=== PATIENT | female | born 1980 | race African-American/Black ===

== ENCOUNTER 2018-10-05 12:19 | Emergency (ER) | payer SELFPAY ==
[2018-10-05] MEDS ORDERED: IBUPROFEN 800 MG TABLET PO ONE (13:40)
[2018-10-05] MEDS ORDERED: AMOXICILLIN TRIHYDRATE 500 MG CAPSULE PO ONE (13:40)
--- NOTE | 2018-10-05 13:46 | ER Document Report ---
ED Oral Problem - General Chief Complaint: Toothache Stated Complaint: TOOTH PAIN Time Seen by Provider: 10/05/18 13:32 Mode of Arrival: Ambulatory Information source: Patient Notes: 38-year-old female presented to ED for complaint of dental pain. She states the tooth has been chipped for several years. She states the pain improved with Motrin but she needed to come to the emergency room to get antibiotics. She states she plans to call the dentist tomorrow. Patient is alert oriented re spirations regular and unlabored speaking in full sentences walks with a even steady gait. TRAVEL OUTSIDE OF THE [place] IN LAST 30 DAYS: No - HPI Patient complains to provider of: Toothache Onset: Other - Tooth has been chipped and decayed for several years pain has been worse for the last several days. Onset: Gradual Quality of pain: Sharp, Throbbing Severity: Severe Pain Level: 5 Associated symptoms: Toothache Worsened by: Cold - Smoking drinking anything cold Relieved by: Nothing Similar symptoms previously: Yes Recently seen / treated by doctor/dentist: No - Related Data Allergies/Adverse Reactions: No Known Allergies Allergy (Unverified 10/05/18 12:22) Past Medical History - General Information source: Patient - Social History Smoking Status: Current Every Day Smoker Cigarette use (# per day): Yes - 2-3 cigarettes a day Chew tobacco use (# tins/day): No Smoking Education Provided: Yes Frequency of alcohol use: Social Drug Abuse: None Occupation: Recycling Lives with: Spouse/Significant other - Female significant other Family History: Reviewed & Not Pertinent - Past Medical History Cardiac Medical History: Reports: None Pulmonary Medical History: Reports: Hx Bronchitis Neurological Medical History: Reports: None Endocrine Medical History: Reports: None Renal/ Medical History: Reports: None Malignancy Medical History: Reports: None GI Medical History: Reports: None Musculoskeletal Medical History: Reports Hx Musculoskeletal Trauma Psychiatric Medical History: Reports: None Traumatic Medical History: Reports: Hx Fractures - Jaw fracture, left fourth toe fracture, boxer's fracture Infectious Medical History: Reports: None Past Surgical History: Reports: Other - Hemorrhoid and polyps Review of Systems - Review of Systems Constitutional: No symptoms reported EENT: Mouth pain, Dental problem Cardiovascular: No symptoms reported Respiratory: No symptoms reported Gastrointestinal: No symptoms reported Genitourinary: No symptoms reported Female Genitourinary: No symptoms reported Musculoskeletal: No symptoms reported Skin: No symptoms reported Hematologic/Lymphatic: No symptoms reported Neurological/Psychological: No symptoms reported -: Yes All other systems reviewed and negative Physical Exam - Vital signs Vitals: Temp Pulse Resp BP Pulse Ox 97.6 F 74 16 131/94 H 98 10/05/18 12:26 10/05/18 12:26 10/05/18 12:26 10/05/18 12:26 10/05/18 12:26 Interpretation: Normal - General General appearance: Appears well, Alert - HEENT Head: Normocephalic, Atraumatic Eyes: Normal Pupils: PERRL Ears: Normal External canal: Normal Tympanic membrane: Normal Sinus: Normal Nasal: Purulent discharge, Swelling Mouth/Lips: Caries Mucous membranes: Normal Teeth diagram: 1 - These are the only teeth left in her bottom jaw tooth #23 is extremely decayed with swelling around the tooth - Respiratory Respiratory status: No respiratory distress Chest status: Nontender Breath sounds: Normal Chest palpation: Normal - Cardiovascular Rhythm: Regular Heart sounds: Normal auscultation Murmur: No - Abdominal Inspection: Normal Distension: No distension Bowel sounds: Normal Tenderness: Nontender Organomegaly: No organomegaly - Back Back: Normal, Nontender - Extremities General upper extremity: Normal inspection, Nontender, Normal color, Normal ROM, Normal temperature General lower extremity: Normal inspection, Nontender, Normal color, Normal ROM, Normal temperature, Normal weight bearing. No: Marco A's sign - Neurological Neuro grossly intact: Yes Cognition: Normal Orientation: AAOx4 Karolyn Coma Scale Eye Opening: Spontaneous Karolyn Coma Scale Verbal: Oriented Karolyn Coma Scale Motor: Obeys Commands Karolyn Coma Scale Total: 15 Speech: Normal Motor strength normal: LUE, RUE, LLE, RLE Sensory: Normal - Psychological Associated symptoms: Normal affect, Normal mood - Skin Skin Temperature: Warm Skin Moisture: Dry Skin Color: Normal Course - Re-evaluation Re-evalutation: 10/05/18 13:52 Assessment consistent with dental decay and mild infection no abscesses noted patient was treated with amoxicillin as she stated Pen-Vee K does not usually help with her dental pain and infections. She was also treated with ibuprofen. She states she does not have a history of ibuprofen is just because she is in pain and in the emergency room. Patient was instructed to monitor her blood pressure and follow-up with her primary doctor for that. Patient was discharged home with prescription for amoxicillin. Presentation is most consistent with likely an infected tooth. Airway is patent. Vitals within normal limits. Patient is able swallow without any difficulty. There is no significant facial swelling. No evidence of Sj angina, apical abscess, or airway obstruction. Patient will be started on antibiotics. I've instructed to follow-up with dentistry as earliest ability for definitive management. At this time will discharge with return precautions and follow-up recommendations. Verbal discharge instructions given a the bedside and opportunity for questions given. Medication warnings reviewed. Patient is in agreement with this plan and has verbalized understanding of return precautions and the need for primary care follow-up in the next 24-72 hours. - Vital Signs Vital signs: Temp Pulse Resp BP Pulse Ox 97.6 F 74 16 131/94 H 98 10/05/18 12:26 10/05/18 12:26 10/05/18 12:26 10/05/18 12:26 10/05/18 12:26 Discharge - Discharge Clinical Impression: Pain due to dental caries Condition: Stable Disposition: HOME, SELF-CARE Additional Instructions: TOOTHACHE: Your pain is due to dental decay. The tooth must be repaired in order for you to feel better. You will, therefore, be referred to a dentist. We do not have dentists on the staff at [facility]. Severe swelling or drainage around a tooth usually means a dental abscess. This also requires evaluation and treatment by the dentist, but antibiotics may be prescribed while awaiting dental treatment. You should be rechecked immediately if you develop major swelling of the face, increasing pain, a lump in the jaw or gums, headache, difficulty swallowing, or fever. Amoxicillin Amoxicillin is a member of the penicillin family. It covers the germs lik malia to cause ear, bronchial, and urinary infections better than plain penicillin. Amoxicillin can be taken without regard to meals. Nausea after taking the medication is rare, but can occur. Diarrhea can occur, particularly in small children. Vaginal yeast infections and oral thrush in infants are also common. Contact your physician if these problems occur. Allergy to penicillins is common. If you have had an allergic reaction to any drug of the penicillin family, you should never take any other penicillin. Notify your doctor at once if you develop hives, itching, swelling, faintness, or shortness of breath. Less serious side effects can include nausea or diarrhea. Ibuprofen Ibuprofen is an excellent, safe drug for pain control. In addition, it has potent antiinflammatory effects which are beneficial, especially in the treatment of injuries, arthritis, or tendonitis. It's best to take ibuprofen with food. Persons with ulcer disease or allergy to aspirin should notify their physician of this before taking ibuprofen. Take the medication exactly as prescribed. Don't take additional doses unless instructed to do so by your doctor. If you develop wheezing, shortness of breath, hives, faintness, stomach pain, vomiting, or dark black stools, return for re-evaluation at once. Salt and soda solution 1 quart of water 1 tablespoon of salt 1 teaspoon of baking soda Mixed 3 ingredients together and boil for 1 minute Placed in a covered quart jar Use 1/2 ounce of cold solution to gargle 3 times a day FOLLOW-UP CARE: You have been referred for follow-up care to the dentists listed below. Call the dentists office for an appointment as you were instructed or within the next two days. If you experience worsening or a significant change in your symptoms, notify the physician immediately or return to the Emergency Department at any time for re-evaluation. [facility] [address] [place], [place] [facility] [address] [place] [address] Formerly [facility] [address] [facility] [address] [facility] [employer] [facility] [address] [email or web address] [address] [place] [address] Thursday- 8:00am to 5:00 pm Will see patients from other [facility]. Charges based on income and family size and accepts Medicare, Medicaid, and Insurances Will pull molars [facility] [place] [address] Hours of Operation 8:00 am - 4:30 pm weekdays The following dental offices accept Medicaid: [facility] Dr. Maravilla Dr. Long Dr. Lozada Dr. Solo Carlos Cortez [place], and [facility] Dr. Jordan ([place]) Dr. Mora ([place]) [facility] Drs. Chaudhry and Siddhartha ([place]) Dr. Sheikh ([place]) [facility] Dr. Linton ([place]) Drs. Wu and ([place]) Medicaid Care Line Prescriptions: Amoxicillin Trihydrate [Amoxil 875 mg Tablet] 1 tab PO BID #20 tablet Ibuprofen [Motrin 800 mg Tablet] 800 mg PO Q8H PRN #30 tab PRN Reason: Forms: Elevated Blood Pressure, Smoking Cessation Education
[2018-10-05 13:53] VITALS: BP 126/86
== END 2018-10-05 13:59 | disposition home or self-care (01) ==
LOC: ER 12:19
DX: K02.9 Dental caries, unspecified (principal); K08.89 Other specified disorders of teeth and supporting structures; F17.210 Nicotine dependence, cigarettes, uncomplicated; J34.89 Other specified disorders of nose and nasal sinuses
CPT/HCPCS: 99282

== ENCOUNTER 2019-12-05 13:23 | Emergency (ER) | payer SELFPAY ==
--- NOTE | 2019-12-05 14:36 | ER Document Report ---
HPI - HPI Time Seen by Provider: 12/05/19 14:33 Pain Level: 3 Notes: Patient is an otherwise healthy 39-year-old female presenting to the emergency department chief complaint of neck pain. Patient denies any injury to the area. She states that several days ago she woke up with a very stiff neck, she states the pain radiates down into her right shoulder. She reports reports the pain is worse with any movement and she does not have full range of motion. She denies any fever or other illness. Past Medical History - General Information source: Patient - Social History Smoking Status: Current Some Day Smoker Chew tobacco use (# tins/day): No Frequency of alcohol use: Occasional Drug Abuse: None Family History: Reviewed & Not Pertinent Patient has suicidal ideation: No Patient has homicidal ideation: No Pulmonary Medical History: Reports: Hx Bronchitis Renal/ Medical History: Denies: Hx Peritoneal Dialysis Musculoskeletal Medical History: Reports Hx Musculoskeletal Trauma Traumatic Medical History: Reports: Hx Fractures - Jaw fracture, left fourth toe fracture, boxer's fracture Past Surgical History: Reports: Hx Oral Surgery, Other - Hemorrhoid and polyps Vertical Provider Document - CONSTITUTIONAL Notes: PHYSICAL EXAMINATION: GENERAL: Well-appearing, well-nourished and in no acute distress. HEAD: Atraumatic, normocephalic. EYES: Pupils equal round extraocular movements intact, conjunctiva are normal. ENT: Nares patent NECK: Normal range of motion LUNGS: No respiratory distress Musculoskeletal: Slightly limited range of motion when flexing neck towards the left. No vertebral tenderness, step-off or deformity. Tenderness to palpation down into the scapular area. NEUROLOGICAL: Normal speech, normal gait. PSYCH: Normal mood, normal affect. SKIN: Warm, Dry, normal turgor, no rashes or lesions noted. - INFECTION CONTROL TRAVEL OUTSIDE OF THE [place] IN LAST 30 DAYS: No Course - Re-evaluation Re-evalutation: Exam most consistent with torticollis. Patient will be started on muscle relaxers for the next several days, work note given. ED return precautions discussed to include development of fever. Patient verbalized understanding and agreement with this plan. - Vital Signs Vital signs: Temp Pulse Resp BP Pulse Ox 97.8 F 75 20 127/81 H 100 12/05/19 13:40 12/05/19 13:40 12/05/19 13:40 12/05/19 13:40 12/05/19 13:40 Discharge - Discharge Clinical Impression: Torticollis Condition: Stable Disposition: HOME, SELF-CARE Additional Instructions: Torticollis You have torticollis, often called "wry neck." This is due to spasm of neck muscles -- locking the neck into a crooked position. Many different problems can lead to torticollis, such as a minor injury, sleeping with tension on the neck, or inflammation in the glands of the neck. Torticollis is usually treated with heat to relax the neck muscles, but the physician may recommend cold packs if a minor injury is suspected as the cause. Muscle relaxing and antiinflammatory medicine are often prescribed. You may need a neck collar to support your head. Improvement is usually rapid. Usually, the neck can be moved fully within two days, although some pain may persist for a few weeks. Call the doctor at once if you worsen, or if you develop high fever, severe headache, numbness or weakness, or other alarming symptoms. Prescriptions: Diazepam [Valium 2 mg Tablet] 2 mg PO Q6HP PRN #3 tablet PRN Reason: Cyclobenzaprine HCl [Flexeril 10 mg Tablet] 10 mg PO TIDP PRN #15 tab PRN Reason: Forms: Return to Work
[2019-12-05] MEDS ORDERED: DIAZEPAM 5 MG TABLET PO ONE (14:53)
[2019-12-05 15:18] VITALS: BP 125/80
== END 2019-12-05 15:18 | disposition home or self-care (01) ==
LOC: ER 13:23
DX: M43.6 Torticollis (principal); F17.200 Nicotine dependence, unspecified, uncomplicated
CPT/HCPCS: 99283

== ENCOUNTER 2020-10-08 15:14 | Emergency (ER) | payer SELFPAY ==
[2020-10-08 15:22] VITALS: BP 130/90
--- NOTE | 2020-10-08 17:09 | ER Document Report ---
ED Medical Screen (RME) - General Chief Complaint: Shortness Of Breath Stated Complaint: SHORT OF BREATH,COUGH TRAVEL OUTSIDE OF THE [place] IN LAST 30 DAYS: No - HPI Notes: 10/08/20 17:05 Rapid Medical Exam HPI: This is a 40yo female c/o sob, cough, and diarrhea X 2 days. no known covid contacts. SOB is worse when ambulating or laying down. Denies fever/chills or abdom pain. had covid contact through cousin in august. pt has never been tested or diagnosed w/ covid. Physical Exam: GENERAL: Well-appearing, well-nourished and in no acute distress. HEAD: Atraumatic, normocephalic. ENT: Moist mucous membranes. RESP: Respirations even and unlabored CV- Regular rate. NEURO: No focal neurological deficits. Moves all extremities spontaneously and on command. My involvement in this patients care was limited to a rapid initial assessment. A comprehensive ED assessment and evaluation of the patient, analysis of test results, treatment, and completion of the medical decision making process will be performed by other ER providers. - Related Data Allergies/Adverse Reactions: No Known Allergies Allergy (Verified 12/05/19 14:33) Past Medical History Pulmonary Medical History: Reports: Hx Bronchitis Renal/ Medical History: Denies: Hx Peritoneal Dialysis Musculoskeltal Medical History: Reports Hx Musculoskeletal Trauma Traumatic Medical History: Reports: Hx Fractures - Jaw fracture, left fourth toe fracture, boxer's fracture Past Surgical History: Reports: Hx Oral Surgery, Other - Hemorrhoid and polyps Physical Exam - Vital signs Vitals: Temp Pulse Resp BP Pulse Ox 98.3 F 70 20 130/90 H 97 10/08/20 15:20 10/08/20 15:20 10/08/20 15:20 10/08/20 15:20 10/08/20 15:20 Course - Vital Signs Vital signs: Temp Pulse Resp BP Pulse Ox 98.3 F 70 20 130/90 H 97 10/08/20 15:20 10/08/20 15:20 10/08/20 15:20 10/08/20 15:20 10/08/20 15:20
== END 2020-10-08 18:00 | disposition left against medical advice (07) ==
LOC: ER 15:14
DX: R06.02 Shortness of breath (principal); R05 Cough; R19.7 Diarrhea, unspecified; Z20.822 Contact with and (suspected) exposure to COVID-19; Z53.20 Procedure and treatment not carried out because of patient's decision for unspecified reasons
CPT/HCPCS: 99281

== ENCOUNTER 2020-10-09 14:53 | Emergency (ER) | payer OTHER ==
[2020-10-09 18:21] LABS: ABSOLUTE BASOPHILS # (AUTO) 0.1 10^3/uL (0.0-0.2); ABSOLUTE EOSINOPHILS # (AUTO) 0.1 10^3/uL (0.0-0.6); ABSOLUTE LYMPHOCYTES (AUTO) 2.5 10^3/uL (0.5-4.7); ABSOLUTE MONOCYTES (AUTO) 0.5 10^3/uL (0.1-1.4); ABSOLUTE NEUT (AUTO) 5.8 10^3/uL (1.7-8.2); BASOPHILS % (AUTO) 0.7 % (0-2); EOSINOPHILS % (AUTO) 0.7 % (0-6); HEMATOCRIT 36.9 % (36.0-47.0); HEMOGLOBIN 12.2 g/dL (12.0-15.5); MEAN CORPUSCULAR HEMOGLOBIN 28.4 pg (27.0-33.4); MEAN CORPUSCULAR VOLUME 86 fl (80-97); MONOCYTES % (AUTO) 5.6 % (3-13); PLATELET COUNT 256 10^3/uL (150-450); RED CELL DISTRIBUTION WIDTH 14.9 % (11.5-14.0); TOTAL CELLS COUNTED % (AUTO) 100 %
[2020-10-09 18:41] LABS: ALBUMIN 4.3 g/dL (3.5-5.0); ALKALINE PHOSPHATASE 78 U/L (38-126); ANION GAP 8 (5-19); ASPARTATE AMINO TRANSFERASE 23 U/L (14-36); BILIRUBIN,DIRECT 0.1 mg/dL (0.0-0.4); BILIRUBIN,TOTAL 0.4 mg/dL (0.2-1.3); BLOOD UREA NITROGEN 6 mg/dL (7-20); CALCIUM 9.3 mg/dL (8.4-10.2); CARBON DIOXIDE 27 mmol/L (22-30); CHLORIDE 103 mmol/L (98-107); GLUCOSE 95 mg/dL (75-110); POTASSIUM 4.1 mmol/L (3.6-5.0); TOTAL PROTEIN 7.5 g/dL (6.3-8.2)
--- NOTE | 2020-10-09 18:57 | RADIOLOGY REPORT (SQ) ---
EXAM DESCRIPTION: CHEST SINGLE VIEW IMAGES COMPLETED DATE/TIME: 10/09/2020 6:11 pm REASON FOR STUDY: sob COMPARISON: None. EXAM PARAMETERS: NUMBER OF VIEWS: One view. TECHNIQUE: Single frontal radiographic view of the chest acquired. RADIATION DOSE: NA LIMITATIONS: None. FINDINGS: LUNGS AND PLEURA: No opacities, masses or pneumothorax. No pleural effusion. MEDIASTINUM AND HILAR STRUCTURES: No masses. Contour normal. HEART AND VASCULAR STRUCTURES: Heart normal in size. Normal vasculature. BONES: No acute findings. HARDWARE: None in the chest. OTHER: No other significant finding. IMPRESSION: 1. NO ACUTE RADIOGRAPHIC FINDING IN THE CHEST. TECHNICAL DOCUMENTATION: JOB ID: [id number] 2010 [employer]- All Rights Reserved Reading location - IP/workstation name: [email or web address]
--- NOTE | 2020-10-09 19:06 | ER Document Report ---
ED General - General Chief Complaint: Flu Symptoms Stated Complaint: NAUSEA Time Seen by Provider: 10/09/20 16:36 TRAVEL OUTSIDE OF THE [place] IN LAST 30 DAYS: No - HPI Notes: Patient is a 40-year-old female with no significant past medical history who presents with cough and sore throat. Patient states that she was exposed to COVID-19. Her symptoms began 2 days ago. She describes occasional headaches, sore throat, cough. Cough is a dry cough. She denies any fevers. She states she has had chills. No urinary symptoms. No loss of taste or smell. She has had some mild diarrhea. No nausea or vomiting. Patient also mentions that she has a bump on her left side of her head that has been there for years that she wants looked at. She states she also has a sore area in the middle of her chest that has been there for years but has recently become more painful. - Related Data Allergies/Adverse Reactions: No Known Allergies Allergy (Verified 10/09/20 17:09) Past Medical History - General Information source: Patient - Social History Smoking Status: Current Some Day Smoker Family History: Reviewed & Not Pertinent Pulmonary Medical History: Reports: Hx Bronchitis Renal/ Medical History: Denies: Hx Peritoneal Dialysis Musculoskeletal Medical History: Reports Hx Musculoskeletal Trauma Traumatic Medical History: Reports: Hx Fractures - Jaw fracture, left fourth toe fracture, boxer's fracture Past Surgical History: Reports: Hx Oral Surgery, Other - Hemorrhoid and polyps Review of Systems - Review of Systems Notes: CONSTITUTIONAL: No fever, fatigue or weight loss. Positive for chills. SKIN: No rash. Positive for sore area on her chest. HENT: No congestion, ear pain, or sore throat. EYES: No recent vision problems or eye pain. CARDIOVASCULAR: No chest pain or edema. RESPIRATORY: Positive for cough. No shortness of breath. GASTROINTESTINAL: No abdominal pain, nausea, vomiting, bloody stools. Positive for diarrhea. GENITOURINARY: No dysuria. MUSCULOSKELETAL: No joint pain or swelling. NEUROLOGIC: No seizures. No headache, focal weakness or sensory changes. HEMATOLOGIC: No unusual bruising or bleeding. PSYCHIATRIC: No depression or anxiety. Physical Exam - Vital signs Vitals: Temp Pulse Resp BP Pulse Ox 98.7 F 75 18 111/77 99 10/09/20 15:18 10/09/20 15:18 10/09/20 15:18 10/09/20 15:18 10/09/20 15:18 - General General appearance: Appears well In distress: None Notes: VITAL SIGNS: Within normal limits. GENERAL: No acute distress, non-toxic appearance. HEAD: Normal with no signs of head trauma. EYES: Conjunctiva normal, no discharge. EARS: Hearing grossly intact. NOSE: Normal. NECK: Normal range of motion, no tenderness, supple, no lymphadenopathy, No adenopathy, no JVD. CHEST: Clear breath sounds bilaterally. No wheezes, rales, or rhonchi. CARDIAC: Regular rate and rhythm. VASCULAR: No Edema. ABDOMEN: Normal and soft LYMPATHTIC: No lymphadenopathy noted. MUSCULOSKELETAL: Good range of motion of all major joints. Extremities without clubbing, cyanosis or edema. NEUROLOGICAL: Alert and oriented x 3. No focal sensory or strength deficits. Speech normal. Follows commands appropriately. PSYCHIATRIC: Normal Affect, judgement and mood. SKIN: Soft area of tissue on the left lateral scalp, likely consistent with lipoma. Area of induration on her anterior midline chest. Discomfort with palpation but no erythema or streaking. No palpable fluctuance or abscess. Course - Re-evaluation Re-evalutation: 10/09/20 19:38 Patient appears well on exam. Her work-up was unremarkable. I informed her she needs to self isolate until she is called with a negative Covid test. The area on her scalp has been there for many years she states it is not painful. Possibly this could be a lipoma. I did instruct her that she needs to follow-up with a PCP as they may refer her to surgery. The area on her chest is indurated and tender to palpation. I do not feel an obvious abscess. However, due to the induration, I will start her on Keflex for early cellulitis. Patient was told return for any redness, fever, any worsening symptoms. She is very agreeable to this plan. - Vital Signs Vital signs: Temp Pulse Resp BP Pulse Ox 98.7 F 75 18 129/88 H 99 10/09/20 15:18 10/09/20 19:13 10/09/20 19:13 10/09/20 19:13 10/09/20 19:13 - Laboratory Results Result Diagrams: 10/09/20 18:00 10/09/20 18:00 Laboratory Results Interpreted: 10/09/20 10/09/20 18:00 18:00 RDW 14.9 H BUN 6 L Critical Laboratory Results Reviewed: No Critical Results - Radiology Results Critical Radiology Results Reviewed: No Critical Results Discharge - Discharge Clinical Impression: Suspected COVID-19 virus infection Cellulitis Qualifiers: Site of cellulitis: trunk Site of cellulitis of trunk: chest wall Qualified Code(s): L03.313 - Cellulitis of chest wall Condition: Stable Disposition: HOME, SELF-CARE Instructions: COVID-19 Guidance for Persons Under Investigation Additional Instructions: Your work-up today is reassuring. Please self isolate until you are called with a negative Covid result. I will write you an antibiotic for the area on your chest. Please return to the ER immediately for any redness or worsening symptoms at the site. Return to the ER for any shortness of breath, fever, any other concerning signs. Prescriptions: Cephalexin Monohydrate [Keflex 500 mg Capsule] 500 mg PO QID 5 Days #20 capsule
[2020-10-09 19:14] VITALS: BP 129/88
== END 2020-10-09 19:15 | disposition home or self-care (01) ==
LOC: ER 14:53
DX: R05 Cough (principal); J02.9 Acute pharyngitis, unspecified; R51.9 Headache, unspecified; R68.83 Chills (without fever); R19.7 Diarrhea, unspecified; Z20.822 Contact with and (suspected) exposure to COVID-19; L03.313 Cellulitis of chest wall; R22.0 Localized swelling, mass and lump, head; F17.200 Nicotine dependence, unspecified, uncomplicated
CPT/HCPCS: 99284; 36415; 85025; 87635; 80053; 71045; C9803